=== PATIENT | male | born 1955 | race Caucasian/White ===

== ENCOUNTER 2016-10-12 13:28 | Observation (INO) | payer OTHER ==
[~2016-10-12] VITALS: Ht 185.4 cm; Wt 94.0 kg
[2016-10-12 14:07] LABS: BASO % 0.6 % (0.2-1.2); EOS # 0.1 10_X3_uL (0.0-0.5); GRAN % 55.3 % (34.0-67.9); HEMATOCRIT 44.9 % (40-51); HEMOGLOBIN 15.6 g/dL (13.7-17.5); LYMPH # 2.4 10_X3_uL (1.3-3.6); LYMPH % 33.9 % (21.8-53.1); MEAN CORPUSCULAR HEMOGLOBIN 31.1 pg (27.0-33.0); MEAN CORPUSCULAR HGB CONC 34.7 g/dL (32.0-36.0); MEAN CORPUSCULAR VOLUME 89.4 fL (79-92); MEAN PLATELET VOLUME 11.7 fl (7.5-11.5); MONO # 0.6 10_X3_uL (0.3-0.8); MONO % 8.2 % (5.3-12.2); PLATELET COUNT 107 x10_3/uL (163-337); RED BLOOD COUNT 5.02 x10_6/uL (4.6-6.1); RED CELL DISTRIBUTION WIDTH 14.1 % (11.6-14.4); WHITE BLOOD COUNT 7.2 x10_3/uL (4.2-9.1)
[2016-10-12 14:50] LABS: BLOOD UREA NITROGEN 16 mg/dL (7-18); CALCIUM 8.8 mg/dL (8.7-10.7); CARBON DIOXIDE 23 mmol/L (21-32); CREATININE 0.8 mg/dL (0.6-1.3); GLUCOSE,RANDOM 103 mg/dL (70-99); POTASSIUM 4.1 mmol/L (3.5-5.1); SODIUM 139 mmol/L (136-145)
[2016-10-12 16:56] LABS: INR 1.1 (1.0-1.1); PROTHROMBIN TIME (PATIENT) 10.8 SECONDS (9.6-10.8)
[2016-10-12 20:12] LABS: CKMB 3.2 ng/ml (0.0-5.0); TROP-I < 0.30 NG/ML (0.00-0.30)
[2016-10-13 02:21] LABS: CKMB 2.8 ng/ml (0.0-5.0)
[2016-10-13 02:22] LABS: TROP-I < 0.30 NG/ML (0.00-0.30)
[2016-10-13 08:26] LABS: CKMB 2.7 ng/ml (0.0-5.0)
[2016-10-13 08:29] LABS: TROP-I < 0.30 NG/ML (0.00-0.30)
[2016-10-13 09:19] LABS: HEMATOCRIT 44.9 % (40-51); HEMOGLOBIN 15.5 g/dL (13.7-17.5); MEAN CORPUSCULAR HEMOGLOBIN 31.3 pg (27.0-33.0); MEAN CORPUSCULAR HGB CONC 34.5 g/dL (32.0-36.0); MEAN CORPUSCULAR VOLUME 90.5 fL (79-92); MEAN PLATELET VOLUME 10.5 fl (7.5-11.5); RED BLOOD COUNT 4.96 x10_6/uL (4.6-6.1); WHITE BLOOD COUNT 8.9 x10_3/uL (4.2-9.1)
[2016-10-13 09:25] LABS: ALBUMIN 4.1 gm/dL (3.4-5.0); ALKALINE PHOSPHATASE 46 U/L (50-136); ALT/SGPT 27 U/L (7.53-40.17); AST/SGOT 38 U/L (6.66-35.34); BILIRUBIN,TOTAL 0.55 mg/dL (0.0-1.0); BLOOD UREA NITROGEN 12 mg/dL (7-18); CALCIUM 8.7 mg/dL (8.7-10.7); CARBON DIOXIDE 23 mmol/L (21-32); CREATININE 0.9 mg/dL (0.6-1.3); GLUCOSE,RANDOM 109 mg/dL (70-99); POTASSIUM 4.9 mmol/L (3.5-5.1); SODIUM 137 mmol/L (136-145); TOTAL PROTEIN 6.7 gm/dL (6.4-8.2)
== END 2016-10-13 11:47 | disposition home or self-care (01) ==
LOC: ER 13:28 → MS 16:00 → UNDODEPER 10-14 16:22
PROVIDERS: General Practice; ADMIT Family Medicine
DX: R07.89 Other chest pain (principal); M50.20 Other cervical disc displacement, unspecified cervical region; M48.02 Spinal stenosis, cervical region; I10 Essential (primary) hypertension; M79.602 Pain in left arm; R50.9 Fever, unspecified; J44.9 Chronic obstructive pulmonary disease, unspecified; R06.02 Shortness of breath; G89.29 Other chronic pain; F17.210 Nicotine dependence, cigarettes, uncomplicated; Z82.49 Family history of ischemic heart disease and other diseases of the circulatory system
CPT/HCPCS: 36415; 71250; 72125; 80048; 80053; 80061; 82550; 82553; 83036; 85025; 85610; 85730; 93005; 93041; 96365; 96366; 96372; 96375; 96376; 99070; 99284-25; G0378; J7050